=== PATIENT | female | born 1990 | race Caucasian/White ===

== ENCOUNTER 2024-01-16 12:02 | Emergency (ER) | payer OTHER, SELFPAY ==
--- NOTE | ~2024-01-16 | XR_ITS ---
EXAMINATION: XR chest 2V DATE: 01/16/2024 12:43 INDICATION: Wheezing. Crackles. Fever. TECHNIQUE: Frontal and lateral views of the chest were obtained. COMPARISON: None. FINDINGS: There is no pneumonia, pleural effusion, or pneumothorax. The heart size is normal. There a re surgical clips in the abdomen. IMPRESSION: 1. No acute cardiopulmonary disease. Reviewed, dictated and finalized at location A. AL STUDIES TEACHER
--- NOTE | 2024-01-16 12:12 | ED_ITS ---
HPI - General Adult General Chief complaint: Upper Respiratory Infection Stated complaint: wheezing and tiredness Time Seen by Provider: 01/16/24 12:11 Source: patient Mode of arrival: ambulatory Limitations: no limitations History of Present Illness HPI narrative: 33-year-old female patient presents to [facility] with complaints of a cough, fever and wheezing for the past 3 days. Patient states her fever today was about 101. Patient states she has had some fatigue and is having trouble laying flat. Patient is an active smoker denies any flu vaccinations this year. Patient states that her son recently was diagnosed with pneumonia. Related Data Home Medications Medication Instructions Recorded Confirmed venlafaxine 150 mg mg PO 01/16/24 capsule,extended release 24 hr Allergies Allergy/AdvReac Type Severity Reaction Status Date / Time No Known Allergies Allergy Verified 01/16/24 12:20 Review of Systems Review of Systems: CONSTITUTIONAL: Positive fever, body aches and chills, denies sweats. EYES: Denies visual changes, redness, or discharge. ENT: positive rhinorrhea, congestion, denies sore throat, or otalgia. CARDIOVASCULAR: Denies chest pain, palpitations, or edema. RESPIRATORY: positive cough with dyspnea. GASTROINTESTINAL: Denies abdominal pain, nausea, vomiting, or diarrhea. GENITOURINARY: Denies dysuria or hematuria. SKIN: Denies rash or itching. MUSCULOSKELETAL: Denies back pain, joint pain, or myalgia. NEUROLOGIC: Denies headache, numbness, or weakness. PSYCHIATRIC: Denies anxiety or depression. [facility] Past Medical History Medical History Smoking history Comments At the time of my signature I agree with nursing past medical history, surgical, social, and family history. There is no relevant family history pertinent to the presenting complaint. Exam Narrative: GENERAL: ill-appearing, well-nourished, and in no acute distress. HEAD: Normocephalic, atraumatic. EYES: PERRLA and EOMI. ENT: Nares with erythema edema noted bilaterally, no rhinorrhea or epistaxis. Mucous membranes moist. posterior pharynx with no erythema, tonsillar enlargement, exudates or lesions present. Bilateral TMs are clear with no erythema foreign bodies the canal. NECK: Supple. No lymphadenopathy CHEST: Patient has crackles noted to the right lower lobe. Wheezing noted to bilateral lower lobes on auscultation. wheezing noted to bilateral upper lobes on inspiratory inspiration No respiratory distress. coughing noted during exam HEART: Regular rate and rhythm. No murmur heard. Normal peripheral pulses. ABDOMEN: Soft, nontender, nondistended, normal active bowel sounds. EXTREMITIES: Normal range of motion. No edema. SKIN: Warm, dry, no rash. NEURO: No focal deficits. Alert and oriented x3. Course Course Level of Care: Express Care Visit Reevaluation(s) Reevaluation #1: re-evaluated patient and patient states she is feeling little bit better since receiving the DuoNeb. Patient's lung sounds do appear to sound less tight but there is still continues to be some wheezing to bilateral lower lobes. Discussed with her that the x-ray is negative for pneumonia however I am going to go ahead and prophylactically treat her since she is running fevers and her child was diagnosed with pneumonia earlier this week. Discussed with patient she is most likely got some kind of bronchitis and which we will treat with oral steroids, inhaler and Tessalon Perles. Patient verbalized understanding denies any other questions or concerns at this time. Date: 01/16/24 Time: 13:23 Vital Signs Vital signs: Vital Signs Temperature 36.7 C 01/16/24 12:15 Pulse Rate 94 01/16/24 12:15 Respiratory Rate 18 01/16/24 12:15 Blood Pressure 142/76 H 01/16/24 12:15 Pulse Oximetry 98 01/16/24 12:15 Oxygen Delivery Room Air 01/16/24 12:15 Temperature 36.7 C 01/16/24 12:20 Pulse Rate 94 01/16/24 12:20 Respiratory Rate 18 01/16/24 12:20 Blood Pressure 142/76 H 01/16/24 12:20 Pulse Oximetry 98 01/16/24 12:20 Oxygen Delivery Room Air 01/16/24 12:20 Vital signs reviewed. Medical Decision Making MDM Narrative Medical decision making narrative: plan of care patient is swabbed her today for influenza, COVID obtain a chest x-ray we will also give her a neb treatment to see if we can decrease the wheezing noted on auscultation. I will reassess her once this has resulted Differential Diagnosis Differential Diagnosis: Differential diagnosis: Allergic rhinitis, chronic sinusitis, tonsillitis, ac zack sinusitis, infectious mononucleosis, seasonal influenza, pertussis, diphtheria, meningococcal disease, viral syndrome, viral bronchitis, RSV, COVID- 19 Vital Signs Vital Signs: Vital Signs Temperature 36.7 C 01/16/24 12:15 Pulse Rate 94 01/16/24 12:15 Respiratory Rate 18 01/16/24 12:15 Blood Pressure 142/76 H 01/16/24 12:15 Pulse Oximetry 98 01/16/24 12:15 Oxygen Delivery Room Air 01/16/24 12:15 Temperature 36.7 C 01/16/24 12:20 Pulse Rate 94 01/16/24 12:20 Respiratory Rate 18 01/16/24 12:20 Blood Pressure 142/76 H 01/16/24 12:20 Pulse Oximetry 98 01/16/24 12:20 Oxygen Delivery Room Air 01/16/24 12:20 Lab Data Labs: Lab Results 01/16/24 Range/Units 12:58 POC Influenza A Ag Negative (Negative) POC Influenza B Ag Negative (Negative) POC SARS CoV-2 Ag Negative (Negative) Imaging Data Radiologist's impression: [place] [address] XRay Report Signed Patient: Tamanna Jiménez : 1990 MR#: [id number] Age: 33 Acct:[id number] Loc: [facility] ADM Date: 01/16/24Attending Dr: Ordering Physician: aBn Adams APRN Date of Service: 01/16/24 Procedure(s): XR chest 2V Accession Number(s): [id number] cc: Ban Adams APRN; Jeanine Espitia~ EXAMINATION: XR chest 2V DATE: 01/16/2024 12:43 INDICATION: Wheezing. Crackles. Fever. TECHNIQUE: Frontal and lateral views of the chest were obtained. COMPARISON: None. FINDINGS: There is no pneumonia, pleural effusion, or pneumothorax. The heart size is normal. There are surgical clips in the abdomen. IMPRESSION: 1. No acute cardiopulmonary disease. Reviewed, dictated and finalized at location A. R INSPECTOR Dictated By: Renny Ventura MD 01/16/24 1244 Signed By: <Electronically signed by Renny Ventura MD in OV> Critical Care Time Critical Care Time Critical Care Time: No Discharge Plan Discharge Clinical Impression: Bronchitis Patient Disposition: Home, Self-Care Condition: Stable Instructions: Antibiotic Form, Acute Bronchitis (ED) Additional Instructions: Acute bronchitis is swelling and irritation in the air passages of your lungs. This irritation may cause you to cough or have other breathing problems. Acute bronchitis often starts because of another viral illness, such as a cold or the flu. The illness spreads from your nose and throat to your windpipe and airways. Bronchitis is often called a chest cold. Acute bronchitis lasts about 2-6 weeks and is usually not a serious illness. AFTER YOU LEAVE: Medicines: Ibuprofen or acetaminophen: These medicines help lower a fever. They are available without a doctor's order. Ask your healthcare provider which medicine is right for you. Ask how much to take and how often to take it. Follow directions. These medicines can cause stomach bleeding if not taken correctly. Ibuprofen can cause kidney damage. Do not take ibuprofen if you have kidney disease, an ulcer, or allergies to aspirin. Acetaminophen can cause liver damage. Do not drink alcohol if you take acetaminophen. Cough medicine: This medicine helps loosen mucus in your lungs and make it easier to cough up. This can help you breathe easier. Inhalers: You may need one or more inhalers to help you breathe easier and cough less. An inhaler gives your medicine in a mist form so that you can breathe it into your lungs. Ask your healthcare provider to show you how to use your inhaler correctly. Steroid medicine: Steroid medicine helps open your air passages so you can breathe easier. Take your medicine as directed. Call your healthcare provider if you think your medicine is not helping or if you have side effects. How to use an inhaler: Shake the inhaler well to make sure you get the correct amount of medicine per puff. Remove the cover from your inhaler's mouthpiece. If you are using a spacer, connect your inhaler to the flat end of the spacer. Exhale as much air from your lungs as you can. Put the mouthpiece in your mouth past your front teeth and rest it on the top of your tongue. Do not block the mouthpiece opening with your tongue. Breathe in through your mouth at a slow and steady rate. As you do this, press the inhaler to release the puff of medicine. Finish breathing in slowly and deeply as you inhale the medicine. When your lungs are full, hold your breath for 10 seconds. Then breathe out slowly through puckered lips or through your nose. If you need to take more puffs, wait at least 1 minute between each puff. Rinse your mouth with water after you use the inhaler. This may keep you from getting a mouth infection or irritation. Follow the instructions that come with your inhaler to clean it. You should clean your inhaler at least once a week. Ways to care for yourself: Avoid alcohol: Alcohol dulls your urge to cough and sneeze. When you have bronchitis, you need to be able to cough and sneeze to clear your air passages. Alcohol also causes your body to lose fluid. This can make the mucus in your lungs thicker and harder to cough up. Avoid irritants in the air: Do not smoke or allow others to smoke around you. Avoid chemicals, fumes, and dust. Wear a face mask if you must work around dust or fumes. Stay inside on days when air pollution levels are high. If you have allergies, stay inside when pollen counts are high. Avoid aerosol products. This includes spray-on deodorant, bug spray, and hair spray. Drink more liquids: Most people should drink at least 8 eight-ounce cups of water a day. You may need to drink more liquids when you have acute bronchitis. Liquids help keep your air passages moist and help you cough up mucus. Get more rest: You may feel like resting more. Slowly start to do more each day. Rest when you feel it is needed. Eat healthy foods: Eat a variety healthy foods every day. Your diet should include fruits, vegetables, breads, and protein (such as chicken, fish, and beans). Dairy products (such as milk, cheese, and ice cream) can sometimes increase the amount of mucus your body makes. Ask if you should decrease your intake of dairy products. Use a humidifier: Use a cool mist humidifier to increase air moisture in your home. This may make it easier for you to breathe and help decrease your cough. Decrease your risk of acute bronchitis: Get the vaccinations you need: Ask your healthcare provider if you should get vaccinated against the flu or pneumonia. Avoid things that may irritate your lungs: Stay inside or cover your mouth and nose with a scarf when you are outside during cold weather. You should also stay inside on days when air pollution levels are high. If you have allergies, stay inside when pollen counts are high. Avoid using aerosol products in your home. This includes spray-on deodorant, bug spray, and hair spray. Avoid the spread of germs: Wash your hands often with soap and water. Carry germ-killing gel with you. You can use the gel to clean your hands when there is no soap and water available. Do not touch your eyes, nose, or mouth unless you have washed your hands first. Always cover your mouth when you cough. Cough into a tissue or your shirtsleeve so you do not spread germs from your hands. Try to avoid people who have a cold or the flu. If you are sick, stay away from others as much as possible. Follow up with your healthcare provider as directed: Write down questions you have so you will remember to ask them during your follow-up visits. Contact your healthcare provider if: You have a fever. Your skin becomes itchy or you have a rash after you take your medicine. Your breathing problems do not go away or get worse. Your cough does not get better with treatment. You cough up blood. You have questions or concerns about your condition or care. Seek care immediately or call 911 if: You faint. Your lips or fingernails turn blue. You feel like you are not getting enough air when you breathe. You have swelling of your lips, tongue, or throat that makes it hard to breathe or swallow. Prescriptions: New benzonatate 200 mg capsule 200 mg PO TID PRN (Reason: cough) 10 Days Qty: 30 0RF prednisone 20 mg tablet 40 mg PO DAILY 5 Days Qty: 10 0RF albuterol sulfate [Ventolin HFA] 90 mcg/actuation HFA aerosol inhaler 2 puff INHALATION .Q4 hours PRN (Reason: cough) Qty: 18 0RF azithromycin 250 mg tablet See Rx Instructions .ROUTE .COMPLEX Qty: 6 0RF Rx Instructions: For 250 mg dose pack: take 500 mg today (day 1), then 250 mg for 4 days (days 2-5) No Action venlafaxine 150 mg capsule,extended release 24hr PO Follow-up/Referrals: UNKNOWN,DOCTOR [Non-Staff] - Time of Disposition: 13:20
[2024-01-16 12:15] VITALS: BP 142/76; PULSE 94; RESP 18; TEMP 36.7; O2SAT 98
[2024-01-16 12:20] VITALS: BP 142/76; PULSE 94; RESP 18; TEMP 36.7; O2SAT 98
[2024-01-16] MEDS: IPRATROPIUM 0.5 MG/ALBUTEROL SULFATE 2.5 MG AMPUL.NEB 3 ML INHALATION (12:52)
[2024-01-16 13:01] LABS: EDCOVIDSCREEN Negative (Negative); EDINFLUASCREEN Negative (Negative); EDINFLUBSCREEN Negative (Negative)
== END 2024-01-16 13:25 | disposition home or self-care (01) ==
PROVIDERS: Emergency Provider Nurse Practitioner Family
DX: J40 Bronchitis, not specified as acute or chronic (principal); Z20.822 Contact with and (suspected) exposure to COVID-19; F17.200 Nicotine dependence, unspecified, uncomplicated
CPT/HCPCS: 71046; 87426; 87804; 99213; G0463